=== PATIENT | female | born 1985 | race Caucasian/White ===

== ENCOUNTER 2017-02-13 08:21 | Day surgery (SDC) | payer BC ==
[~2017-02-13] VITALS: Ht 170.2 cm; Wt 82.6 kg
[~2017-02-13 08:21] MED LIST: COLACE100 MG PO; FOLIC ACID0.4 MG PO; PRENATAL TABLE1 EAC3 PO; SENNA LAX8.6 MG PO; TYLENOL REGULA325 MG PO
[2017-02-13 09:21] LABS: EOSINOPHIL (%) 1.2 % (0-5); EOSINOPHIL COUNT 0.1 K/uL (0-0.3); HEMATOCRIT 42.1 % (36.0-46.0); IMMATURE GRANULOCYTE (%) 0.4 % (0.0-0.7); INSTRUMENT ABS NEUTROPHIL CT 4.7 K/uL; LYMPHOCYTE COUNT 1.8 K/uL (1.0-2.8); MCH 32.7 PG (29.0-34.0); MCHC 34.9 G/DL (30.0-36.0); MCV 93.8 FL (83-99); MEAN PLAT.VOLUME 10.8 uM^3 (9.5-12.4); MONOCYTE (%) 8.1 % (3-12); MONOCYTE COUNT 0.6 K/uL (0-0.8); NEUTROPHIL (%) 64.9 % (45-76); NEUTROPHIL COUNT 4.7 K/uL (1.8-6.4); PLATELET COUNT 251 K/uL (156-360); RBC DIS.WIDTH-CV 11.9 % (11.8-14.6); RBC DIS.WIDTH-SD 41.7 % (39-53); RED BLOOD COUNT 4.49 M/uL (3.80-5.20); WHITE BLOOD COUNT 7.3 K/uL (4.1-10.2)
[2017-02-13 09:28] VITALS: BP 111/74
[2017-02-13 09:28] LABS: ADD MIUA? YES; BILIRUBIN NEGATIVE; BLOOD NEGATIVE; COLOR AMBER ((YELLOW)); GLUCOSE (STRIP) NEGATIVE; KETONES 5; LEUKOCYTES NEGATIVE; NITRITE NEGATIVE; PROTEIN (STRIP) 30; SPECIFIC GRAVITY 1.029 (1.000-1.030); UROBILINOGEN 0.2 MG/DL (0.2-1.0)
[2017-02-13 09:36] LABS: BACTERIA RARE /HPF; EPITHELIAL CELLS RARE /HPF; MUCUS 3+ /LPF; RED BLOOD CELLS 0-5 /HPF (0-5); WHITE BLOOD CELLS 0-5 /HPF (0-5)
[2017-02-13] MEDS ORDERED: MOTRIN800 MG PO (11:01)
[2017-02-13] MEDS ORDERED: PERCOCET 5/31 TABLET PO (11:01)
[2017-02-13 12:50] VITALS: BP 110/69
[2017-02-13 13:50] VITALS: BP 107/66
== END 2017-02-13 14:20 | disposition home or self-care (01) ==
LOC: SDC 08:21
PROVIDERS: Family Medicine
PROC: 10D17ZZ Extraction of Products of Conception, Retained, Via Natural or Artificial Opening (ICD-10-PCS; principal; 2017-02-13)
DX: O02.1 Missed abortion (principal); Z3A.09 9 weeks gestation of pregnancy; Z82.49 Family history of ischemic heart disease and other diseases of the circulatory system; Z80.8 Family history of malignant neoplasm of other organs or systems
CPT/HCPCS: 81003; 85025; 86900; 86901; 88305; 93005; J0690; J1100; J1885; J2250; J2405; J2765; J3010

== ENCOUNTER 2017-11-06 14:46 | Emergency (ER) | payer BC ==
[~2017-11-06] VITALS: Ht 170.2 cm; Wt 82.3 kg
[~2017-11-06 14:46] MED LIST changes: +MOTRIN800 MG PO; +PERCOCET 5/31 TABLET PO
[2017-11-06 15:16] LABS: HEMATOCRIT 43.2 % (36.0-46.0); HEMOGLOBIN 15.1 G/DL (11.9-15.5); MCH 33.3 PG (29.0-34.0); MCV 95.4 FL (83-99); PLATELET COUNT 273 K/uL (156-360); RBC DIS.WIDTH-SD 41.8 % (39-53); RED BLOOD COUNT 4.53 M/uL (3.80-5.20); WHITE BLOOD COUNT 8.4 K/uL (4.1-10.2)
[2017-11-06 16:12] LABS: APPEARANCE CLEAR ((CLEAR)); BILIRUBIN NEGATIVE; BLOOD MODERATE; COLOR STRAW ((YELLOW)); GLUCOSE (STRIP) NEGATIVE; KETONES NEGATIVE; LEUKOCYTES NEGATIVE; NITRITE NEGATIVE; PROTEIN (STRIP) NEGATIVE; SPECIFIC GRAVITY 1.005 (1.000-1.030); UROBILINOGEN 0.2 MG/DL (0.2-1.0)
[2017-11-06 16:15] LABS: BACTERIA NONE SEEN /HPF; EPITHELIAL CELLS RARE /HPF; MUCUS NONE SEEN /LPF; RED BLOOD CELLS 0-5 /HPF (0-5); UCUL ADDED? NO; WHITE BLOOD CELLS 0-5 /HPF (0-5)
[2017-11-06 18:03] VITALS: BP 149/97
== END 2017-11-06 18:05 | disposition home or self-care (01) ==
LOC: EME 14:46
DX: O00.90 Unspecified ectopic pregnancy without intrauterine pregnancy (principal)
CPT/HCPCS: 81003; 84702; 85027; 99281; 99284; J9260

== ENCOUNTER 2017-11-12 00:52 | Day surgery (SDC) | payer BC ==
[~2017-11-12] VITALS: Ht 170.2 cm; Wt 83.0 kg
[2017-11-12 01:34] LABS: BASOPHIL (%) 0.7 % (0-1); BASOPHIL COUNT 0.1 K/uL (0-0.1); EOSINOPHIL (%) 1.7 % (0-5); EOSINOPHIL COUNT 0.2 K/uL (0-0.3); HEMATOCRIT 38.6 % (36.0-46.0); HEMOGLOBIN 13.5 G/DL (11.9-15.5); IMMATURE GRANULOCYTE (%) 0.2 % (0.0-0.7); LYMPHOCYTE (%) 37.3 % (15-42); LYMPHOCYTE COUNT 3.3 K/uL (1.0-2.8); MCV 94.4 FL (83-99); MONOCYTE COUNT 0.7 K/uL (0-0.8); NEUTROPHIL (%) 52.1 % (45-76); NEUTROPHIL COUNT 4.7 K/uL (1.8-6.4); PLATELET COUNT 268 K/uL (156-360); RBC DIS.WIDTH-SD 41.8 % (39-53); RED BLOOD COUNT 4.09 M/uL (3.80-5.20); WHITE BLOOD COUNT 8.9 K/uL (4.1-10.2)
[2017-11-12] MEDS ORDERED: ADULT ASPIRIN R81 MG PO (01:44)
[2017-11-12 01:49] LABS: CHLORIDE 108 mEq/L (99-109); POTASSIUM 3.6 mEq/L (3.7-5.4); SODIUM 140 mEq/L (136-147)
[2017-11-12 01:51] LABS: GLUCOSE 87 mg/dL (70-99)
[2017-11-12 01:55] LABS: CREATININE 0.8 mg/dL (0.6-1.3); GFR ESTIMATE (CALCULATED) > 59 mL/min/
[2017-11-12 01:56] LABS: UREA NITROGEN (BUN) 12 mg/dL (9-23)
[2017-11-12 02:01] LABS: QUANTITATIVE HCG 1378.4 MIU/ML
[2017-11-12 05:06] VITALS: BP 99/59
[2017-11-12 07:55] VITALS: BP 88/47
[2017-11-12 08:47] LABS: BASOPHIL (%) 0.7 % (0-1); BASOPHIL COUNT 0.1 K/uL (0-0.1); EOSINOPHIL COUNT 0.1 K/uL (0-0.3); HEMOGLOBIN 11.8 G/DL (11.9-15.5); IMMATURE GRANULOCYTE (%) 0.3 % (0.0-0.7); LYMPHOCYTE (%) 31.6 % (15-42); LYMPHOCYTE COUNT 2.4 K/uL (1.0-2.8); MCH 32.4 PG (29.0-34.0); MCHC 33.7 G/DL (30.0-36.0); MCV 96.2 FL (83-99); MONOCYTE (%) 8.3 % (3-12); MONOCYTE COUNT 0.6 K/uL (0-0.8); NEUTROPHIL (%) 58.1 % (45-76); NEUTROPHIL COUNT 4.5 K/uL (1.8-6.4); PLATELET COUNT 226 K/uL (156-360); RBC DIS.WIDTH-CV 12.2 % (11.8-14.6); RBC DIS.WIDTH-SD 42.5 % (39-53); RED BLOOD COUNT 3.64 M/uL (3.80-5.20); WHITE BLOOD COUNT 7.7 K/uL (4.1-10.2)
[2017-11-12] MEDS ORDERED: PERCOCET 5/31 TABLET PO (09:08)
[2017-11-12 09:13] VITALS: BP 98/64
== END 2017-11-12 09:57 | disposition home or self-care (01) ==
LOC: EME 00:52 → SDC 02:33 → 2SOUTH 03:19 → ENRESERV 04:17 → 2EASTP 04:47
PROVIDERS: Emergency Medicine; Obstetrics & Gynecology
DX: O00.101 Right tubal pregnancy without intrauterine pregnancy (principal); D25.9 Leiomyoma of uterus, unspecified
CPT/HCPCS: 80048; 84702; 85025; 85025 91; 86850; 86900; 86901; 88305; 99281; 99285; G0378; J0131; J1170; J1200; J1885; J7030; S0020